=== PATIENT | female | born 2000 | race Hispanic/Latino ===

== ENCOUNTER 2021-07-06 09:23 | Day surgery (SDC) | payer MEDICARE ==
[2021-07-06] VITALS (9 sets, daily range): BP systolic 108–160; BP diastolic 68–99
[~2021-07-06] VITALS: Ht 165.1 cm; Wt 103.0 kg
[~2021-07-06 09:23] MED LIST: 0.9%NACL 1000ML 1,000 ML IV ONE; BENZ2TAB10 PO; CLON0.1T PO; CLON1TAB12 PO; OXCA300O4 PO; RISP1SOL4 PO; SUCR1TAB2 PO; TRAZODONE PO
[2021-07-06] MEDS ORDERED: CLON0.1T PO (10:02)
[2021-07-06] MEDS ORDERED: MIDAZOLAM HCL SYRUP 10 MG/5 ML 5ML BOTTLE ONE (10:16)
[2021-07-06] MEDS ORDERED: KETAMINE 50MG/ML SYRINGE 50 MG/ML DISP.SYRIN IV ONE (11:17)
[2021-07-06] MEDS ORDERED: GLYCOPYRROLATE 1 MG/5 ML SYRINGE ONE (11:18)
[2021-07-06] MEDS ORDERED: PROPOFOL 10 MG/ML 20ML VIAL IV ONE (11:37)
[2021-07-06 11:54] LABS: BASOPHILS % (AUTO) 0.7 % (0.0-5.0); EOSINOPHILS % (AUTO) 1.2 % (0.0-8.0); HEMATOCRIT 44.9 % (36-48); LYMPHOCYTES % (AUTO) 21.4 % (21.0-51.0); MEAN CORPUSCULAR HEMOGLOBIN 28.6 pg (27.0-33.0); MEAN CORPUSCULAR HGB CONC 32.3 g/dL (32.0-36.0); MEAN CORPUSCULAR VOLUME 88.6 fL (79-99); MONOCYTES % (AUTO) 7.2 % (3.0-13.0); NEUTROPHILS % (AUTO) 69.1 % (40.0-77.0); PLATELET COUNT (AUTO) 266 K/uL (130-400); RED BLOOD CELL COUNT(AUTO) 5.07 MIL/uL (4.00-5.50); RED CELL DISTRIBUTION WIDTH 13.2 % (11.0-15.5); WHITE BLOOD COUNT (AUTO) 6.8 K/uL (4.8-10.8)
[2021-07-06 12:18] LABS: INR 1.04 (0.85-1.15); PROTHROMBIN TIME 11.3 SEC (9.6-11.6)
[2021-07-06 12:47] LABS: ALANINE AMINOTRANSFERASE 68 U/L (12-78); ALBUMIN 3.9 g/dL (3.5-5.0); ASPARTATE AMINOTRANSFERASE 31 U/L (10-37); BILIRUBIN,TOTAL 0.3 mg/dL (0.2-1.0); CARBON DIOXIDE 24 mmol/L (21-32); CHLORIDE 106 mmol/L (101-111); CREATININE 0.6 mg/dL (0.5-1.5); GLOMERULAR FILTR. RATE CALC 132 mL/min (>60); GLUCOSE,RANDOM 105 mg/dL (70-105); POTASSIUM 3.8 mmol/L (3.5-5.1); SODIUM SERUM 141 mmol/L (136-145); TOTAL PROTEIN, SERUM 7.4 g/dL (6.0-8.3); UREA NITROGEN, BLOOD 9 mg/dL (7-18)
== END 2021-07-06 12:30 | disposition home or self-care (01) ==
LOC: ENDO 09:23 → DAH 09:23 → ENDO 12:30
PROVIDERS: ATTEND Internal Medicine Gastroenterology
DX: K21.00 Gastro-esophageal reflux disease with esophagitis, without bleeding (principal); Z20.822 Contact with and (suspected) exposure to COVID-19; K29.70 Gastritis, unspecified, without bleeding; K31.89 Other diseases of stomach and duodenum; K76.0 Fatty (change of) liver, not elsewhere classified; F41.9 Anxiety disorder, unspecified; F84.0 Autistic disorder; F79 Unspecified intellectual disabilities; E66.01 Morbid (severe) obesity due to excess calories; Z68.41 Body mass index [BMI] 40.0-44.9, adult; Z80.7 Family history of other malignant neoplasms of lymphoid, hematopoietic and related tissues; Z83.71 Family history of colonic polyps; Z79.899 Other long term (current) drug therapy
CPT/HCPCS: 36415; 43239; 80053; 82306; 82542; 82607; 82746; 85025; 85610; A4215 ×2; A4221; A4222; A4223; A4606; A4620; A4657; A4663; J2704; J3490 ×2; J7030